=== PATIENT | male | born 1950 | race Caucasian/White ===

== ENCOUNTER 2023-01-01 00:08 | Day surgery (SDC) | payer MEDICARE, SELFPAY ==
[2022-12-22 13:24] VITALS: BMI 34.8
--- NOTE | 2023-01-01 09:04 | WPDANESEPPF ---
Anes - Initial Pre Proc Eval Procedure: Operation Date: 01/01/23 10:30 Proposed Procedures p Colonoscopy - David Osborn MD Date/Time: 01/01/23 09:04 Surgeon: David Osborn MD Pre Op Diagnosis: family hx colon ca Patient Data Age: 72 Gender: M Height: 1.83 m Weight: 116.5 kg Allergies Allergy/AdvReac Type Severity Reaction Status Date / Time No Known Allergies Allergy Verified 01/01/23 09:20 Home Medications Medication Instructions Recorded Confirmed Type Aspirin Child 81 mg PO DAILY 12/22/22 01/01/23 History Cialis 5.5 mg PO DAILY 12/22/22 01/01/23 History Fish Oil 1 tablet PO DAILY 12/22/22 01/01/23 History atorvastatin 80 mg tablet (Lipitor) 80 mg PO DAILY 12/22/22 01/01/23 History coenzyme Q10 1 tablet PO DAILY 12/22/22 01/01/23 History metoprolol tartrate 25 mg tablet 25 mg PO BID 12/22/22 01/01/23 History Patient hx anesthesia problems: none Family hx anesthesia problems: none Results Review: All pre-operative results and documents have been reviewed as part of the pre-operative evaluation. [facility] Past Medical History Medical History (Updated 01/01/23 @ 09:05 by Aramis Sommer MD) CAD (coronary artery disease) HTN (hypertension) Hyperlipidemia Obesity Surgical History Surgical History (Updated 01/01/23 @ 09:05 by Aramis Sommer MD) S/P CABG (coronary artery bypass graft) Social History Social History Years smoked: 50 Tobacco type: smokeless tobacco Alcohol intake: former Drinks per week: 1 Substance use: never Living arrangements: with family Spiritual care concerns: No Anes - Eval Final PreProcedure Day of Procedure 01/01/23 09:04 Patient weight: obese Heart: regular rate and rhythm Lungs: clear to auscultation and normal air movement Airway: Mallampati scale class II Neurological: alert and oriented Last oral intake: >/= 8 hours ASA classification: III Emergent: no Anesthetic plan: proceed Anesthesia type and monitoring: general GIVS Results Review: All pre-operative results and documents have been reviewed as part of the pre-operative evaluation. Informed Consent: The patient's anesthetic plan and its attendant risks and benefits were discussed with the patient/family/POA. Questions were solicited and answers provided to the satisfaction of the patient/family/POA.
[2023-01-01 09:21] VITALS: BP 132/76; PULSE 55; RESP 18; TEMP 36.7; O2SAT 98
[2023-01-01 09:23] VITALS: BMI 35.6
[2023-01-01] MEDS: LACTATED RINGERS 1,000 ML 150 ML IV CONT (09:33)
--- NOTE | 2023-01-01 09:42 | PM.HPGS ---
History of Present Illness History of Present Illness Consent: Risks, benefits, and alternatives have been discussed and questions answered. Patient agrees to proceed with procedure. Chief complaint: family hx colon ca Narrative: Martín Gaspar is a 72 year old male with strong family history of CRC (son, brother) and his last colonoscopy 3 years ago had polyps Review of Systems Constitutional: Constitutional: Denies headache(s) and Denies weakness Eyes: Eyes: Denies blurry vision ENT: Reports Normal hearing present, Denies headache(s) and Denies neck pain Cardiovascular: Cardiovascular: Denies chest pain and Denies dyspnea Respiratory: Respiratory: Denies dyspnea Gastrointestinal: Gastrointestinal: Reports no additional gastrointestinal complaints Genitourinary: Genitourinary: Denies dysuria Musculoskeletal: Musculoskeletal: Denies neck pain Integumentary/Breasts: Skin/Breast: Denies dry skin Neurologic: Reports Normal hearing present, Denies headache(s) and Denies weakness Psychiatric: Psychiatric: Denies anxiety Endocrine: Endocrine: Denies change in body appearance Hematologic/Lymphatic: Hematologic/Lymphatic: Denies easy bleeding Allergic/Immunologic: Allergic/Immunologic: Denies urticaria PMFSH Past Medical History Medical History (Updated 01/01/23 @ 09:43 by David Osborn MD) Adenomatous colon polyp CAD (coronary artery disease) Family history of colon cancer HTN (hypertension) Hyperlipidemia Obesity Surgical History Surgical History (Updated 01/01/23 @ 09:05 by Aramis Sommer MD) S/P CABG (coronary artery bypass graft) Social History Social History Years smoked: 50 Tobacco type: smokeless tobacco Alcohol intake: former Drinks per week: 1 Substance use: never Living arrangements: with family Spiritual care concerns: No Meds Home Medications and Allergies Home Medications Medication Instructions Recorded Confirmed Type Aspirin Child 81 mg PO DAILY 12/22/22 01/01/23 History Cialis 5.5 mg PO DAILY 12/22/22 01/01/23 History Fish Oil 1 tablet PO DAILY 12/22/22 01/01/23 History atorvastatin 80 mg tablet (Lipitor) 80 mg PO DAILY 12/22/22 01/01/23 History coenzyme Q10 1 tablet PO DAILY 12/22/22 01/01/23 History metoprolol tartrate 25 mg tablet 25 mg PO BID 12/22/22 01/01/23 History Allergies Allergy/AdvReac Type Severity Reaction Status Date / Time No Known Allergies Allergy Verified 01/01/23 09:20 Vital Signs Vital Signs - 24 hr 01/01/23 09:21 Temperature 98.0 F Pulse Rate 55 L Respiratory Rate 18 Blood Pressure 132/76 Pulse Oximetry 98 Oxygen Delivery Room Air Exam Const: General: comfortable and no acute distress HENMT: Face/Nose/Sinus: Normal nares present Eyes: General: appearance normal, both eyes and all related structures Neck: Neck: no JVD Resp: Auscultation: clear to auscultation bilaterally Cardio: Rate: regular rate Rhythm: regular rhythm GI: Inspection: non-distended GI Palp: Yes Soft to palpation Skin: General skin exam: normal color Neuro: General: gait normal Speech: normal speech Extrem: General: normal to inspection Psych: Mental Status: mental status grossly normal Assessment and Plan Assessment and plan (1) Adenomatous colon polyp: Code(s): D12.6 - Benign neoplasm of colon, unspecified Status: Acute Assessment and Plan: colonoscopy (2) Family history of colon cancer: Code(s): Z80.0 - Family history of malignant neoplasm of digestive organs Status: Acute
--- NOTE | 2023-01-01 10:11 | SUR.OPER ---
ascending polyps x 2, only 1 retrieved, dr fitzpatrick aware.
[2023-01-01 10:18] VITALS: BP 112/55; PULSE 57; RESP 22; O2SAT 96
[2023-01-01 10:28] VITALS: BP 103/56; PULSE 53; RESP 17; O2SAT 95
[2023-01-01 10:38] VITALS: BP 109/64; PULSE 52; RESP 20; O2SAT 96
== END 2023-01-01 10:50 | disposition home or self-care (01) ==
PROVIDERS: PCP Family Medicine; Visit Provider Internal Medicine Gastroenterology
PROC: 0DJD8ZZ Inspection of Lower Intestinal Tract, Via Natural or Artificial Opening Endoscopic (ICD-10-PCS; CPT 45378; principal; 2023-01-01 10:30)
DX: Z12.11 Encounter for screening for malignant neoplasm of colon (principal); D12.2 Benign neoplasm of ascending colon; D12.3 Benign neoplasm of transverse colon; K63.5 Polyp of colon; K57.30 Diverticulosis of large intestine without perforation or abscess without bleeding; Z80.0 Family history of malignant neoplasm of digestive organs; I10 Essential (primary) hypertension; I25.10 Atherosclerotic heart disease of native coronary artery without angina pectoris; E78.5 Hyperlipidemia, unspecified; Z95.1 Presence of aortocoronary bypass graft; E66.9 Obesity, unspecified; Z68.35 Body mass index [BMI] 35.0-35.9, adult; Z87.891 Personal history of nicotine dependence
CPT/HCPCS: 45385; 88305; J2704; J7120

== ENCOUNTER 2025-07-05 00:38 | Day surgery (SDC) | payer MEDICARE, SELFPAY ==
[2025-06-25 08:21] VITALS: BMI 32.5
[2025-07-05 08:58] VITALS: BP 114/58; PULSE 77; RESP 20; TEMP 36.6; O2SAT 98; BMI 33.3
[2025-07-05] MEDS: LACTATED RINGERS 1,000 ML 150 ML IV CONT (09:09)
--- NOTE | 2025-07-05 09:12 | WPDANESEPPF ---
Anes - Initial Pre Proc Eval Procedure: Operation Date: 07/05/25 10:00 Proposed Procedures p Screening Colonoscopy - David Osborn MD Date/Time: 07/05/25 09:12 Surgeon: David Osborn MD Pre Op Diagnosis: Family Hx of malignant neoplasm of digestive organ Patient Data Age: 74 Gender: M Height: 1.83 m Weight: 111.5 kg Last Vital Signs Temp 36.6 C 07/05/25 08:58 Pulse 77 07/05/25 08:58 Resp 20 07/05/25 08:58 BP 114/58 L 07/05/25 08:58 Pulse Ox 98 07/05/25 08:58 O2 Del Method Room Air 07/05/25 08:58 Allergies Allergy/AdvReac Type Severity Reaction Status Date / Time No Known Allergies Allergy Verified 07/05/25 08:57 Home Medications ?Medication ?Instructions ?Recorded ?Confirmed ?Type Aspirin Child 81 mg PO DAILY 12/22/22 07/05/25 History Cialis 5.5 mg PO DAILY 12/22/22 07/05/25 History atorvastatin 80 mg tablet (Lipitor) 80 mg PO DAILY 12/22/22 07/05/25 History metoprolol tartrate 25 mg tablet 25 mg PO BID 12/22/22 07/05/25 History evolocumab 140 mg/mL subcutaneous 140 mg subcut [id number] 06/25/25 06/25/25 History pen injector (Repatha SureClick) semaglutide (weight loss) 0.25 0.25 mg subcut WEEKLY 06/25/25 06/25/25 History mg/0.5 mL subcutaneous pen injector (Wegovy) tadalafil 5 mg tablet 5 mg PO DAILY 06/25/25 06/25/25 History Patient hx anesthesia problems: none Family hx anesthesia problems: none Results Review: All pre-operative results and documents have been reviewed as part of the pre-operative evaluation. [facility] Past Medical History Medical History (Updated 01/01/23 @ 09:43 by David Osborn MD) Family history of colon cancer Adenomatous colon polyp Hyperlipidemia HTN (hypertension) CAD (coronary artery disease) Obesity Surgical History Surgical History (Updated 01/01/23 @ 09:05 by Aramis Sommer, MD) S/P CABG (coronary artery bypass graft) Social History Social History Years smoked: 50 Smoking status: Former smoker Tobacco type: smokeless tobacco Alcohol intake: former Drinks per week: 1 Alcohol use details: rarely Substance use: never Living arrangements: with family Additional living arrangements comments: with spouse Spiritual care concerns: No Anes - Eval Final PreProcedure Day of Procedure 07/05/25 09:12 Patient weight: obese Heart: regular rate and rhythm Lungs: clear to auscultation Airway: Mallampati scale class II Neurological: alert and oriented Last oral intake: >/= 8 hours ASA classification: III Emergent: no Anesthetic plan: proceed Anesthesia type and monitoring: general GIVS and standard monitoring Results Review: All pre-operative results and documents have been reviewed as part of the pre-operative evaluation. Informed Consent: The patient's anesthetic plan and its attendant risks and benefits were discussed with the patient/family/POA. Questions were solicited and answers provided to the satisfaction of the patient/family/POA.
--- NOTE | 2025-07-05 09:28 | PM.HPGS ---
History of Present Illness History of Present Illness Consent: Risks, benefits, and alternatives have been discussed and questions answered. Patient agrees to proceed with procedure. Chief complaint: Family Hx of malignant neoplasm of digestive organ Narrative: Martín Gaspar is a 74 year old male with strong family history of CRC (son, brother) and his last colonoscopy 2 years ago had polyps Review of Systems Review of Systems: All systems reviewed & are unremarkable except as noted in HPI and below PMFSH Past Medical History Medical History (Updated 01/01/23 @ 09:43 by David Osborn MD) Family history of colon cancer Adenomatous colon polyp Hyperlipidemia HTN (hypertension) CAD (coronary artery disease) Obesity Surgical History Surgical History (Updated 01/01/23 @ 09:05 by Aramis SommerMD) S/P CABG (coronary artery bypass graft) Social History Social History Years smoked: 50 Smoking status: Former smoker Tobacco type: smokeless tobacco Alcohol intake: former Drinks per week: 1 Alcohol use details: rarely Substance use: never Living arrangements: with family Additional living arrangements comments: with spouse Spiritual care concerns: No Meds Home Medications and Allergies Home Medications ?Medication ?Instructions ?Recorded ?Confirmed ?Type Aspirin Child 81 mg PO DAILY 12/22/22 07/05/25 History Cialis 5.5 mg PO DAILY 12/22/22 07/05/25 History atorvastatin 80 mg tablet (Lipitor) 80 mg PO DAILY 12/22/22 07/05/25 History metoprolol tartrate 25 mg tablet 25 mg PO BID 12/22/22 07/05/25 History evolocumab 140 mg/mL subcutaneous 140 mg subcut [id number] 06/25/25 06/25/25 History pen injector (Repatha SureArturick) semaglutide (weight loss) 0.25 0.25 mg subcut WEEKLY 06/25/25 06/25/25 History mg/0.5 mL subcutaneous pen injector (Wegovy) tadalafil 5 mg tablet 5 mg PO DAILY 06/25/25 06/25/25 History Allergies Allergy/AdvReac Type Severity Reaction Status Date / Time No Known Allergies Allergy Verified 07/05/25 08:57 Vital Signs Vital Signs - 24 hr 07/05/25 08:58 Temperature 98 F Pulse Rate 77 Respiratory Rate 20 Blood Pressure 114/58 L Pulse Oximetry 98 Oxygen Delivery Room Air Exam Const: General: comfortable and no acute distress HENMT: Face/Nose/Sinus: Normal nares present Eyes: General: appearance normal, both eyes and all related structures Resp: Auscultation: clear to auscultation bilaterally Cardio: Rate: regular rate Rhythm: regular rhythm GI: Inspection: non-distended GI Palp: Yes Soft to palpation Skin: General skin exam: normal color Extrem: General: normal to inspection Psych: Mental Status: mental status grossly normal Assessment and Plan Assessment and plan (1) Family history of colon cancer: Code(s): Z80.0 - Family history of malignant neoplasm of digestive organs Status: Acute Assessment and Plan: colonoscopy (2) Adenomatous colon polyp: Code(s): D12.6 - Benign neoplasm of colon, unspecified Status: Acute
--- NOTE | 2025-07-05 10:00 | S_PTH ---
PATIENT: Martín Gaspar LOC: [facility]#:[id number] AGE/SX: 74/M ROOM: RE07/05/[address]: David Osborn MD : 1950 BED: DIS: 07/05/2025 SPEC #: [id number] RECD: 07/05/25 11:44 STATUS: JESUS RESilvestre #: [id number] REBECCA: 07/05/25 10:[address]: David Osborn DEPT: [facility] Surgical RECD BY: Aby Coats ENTERED: 07/05/25 11:45 SP TYPE: Surgical OTHR DR: Isidro Arevalo, Tissues: A - Colon Polypectomy Procedures: Hematoxylin and Eosin Stain Gross and Microscopic Level 4
[2025-07-05 10:02] VITALS: BP 87/60; PULSE 70; RESP 22; O2SAT 100
[2025-07-05 10:12] VITALS: BP 91/61; PULSE 71; RESP 26; O2SAT 100
[2025-07-05 10:22] VITALS: BP 115/69; PULSE 72; RESP 21; O2SAT 100
== END 2025-07-05 10:42 | disposition home or self-care (01) ==
PROVIDERS: PCP Family Medicine; Referring Provider Internal Medicine Gastroenterology; Visit Provider Internal Medicine Gastroenterology
PROC: 0DJD8ZZ Inspection of Lower Intestinal Tract, Via Natural or Artificial Opening Endoscopic (ICD-10-PCS; CPT 45378; principal; 2025-07-05 10:00)
DX: Z12.11 Encounter for screening for malignant neoplasm of colon (principal); D12.3 Benign neoplasm of transverse colon; E78.5 Hyperlipidemia, unspecified; I10 Essential (primary) hypertension; I25.10 Atherosclerotic heart disease of native coronary artery without angina pectoris; E66.9 Obesity, unspecified; Z68.33 Body mass index [BMI] 33.0-33.9, adult; Z79.82 Long term (current) use of aspirin; Z79.85 Long-term (current) use of injectable non-insulin antidiabetic drugs; Z95.1 Presence of aortocoronary bypass graft; Z87.891 Personal history of nicotine dependence; Z80.0 Family history of malignant neoplasm of digestive organs
CPT/HCPCS: 45390; 88305; J2003; J2704; J7120